=== PATIENT | female | born 1940 | race Caucasian/White ===

== ENCOUNTER 2016-10-17 12:27 | Emergency (ER) | payer MEDICARE ==
[2016-10-17 12:34] VITALS: BMI 25.4
[2016-10-17 12:37] VITALS: BP 143/77; PULSE 55; RESP 17; TEMP 97.5; O2SAT 96
--- NOTE | 2016-10-17 12:56 | ED PDOC ---
Arrival/HPI - History of Present Illness Time/Duration: > month Symptom Onset: Gradual Symptom Course: Improving Context: Home - General Chief Complaint: Abnormal Skin Integrity Time Seen by Provider: 10/17/16 12:44 - History of Present Illness Narrative History of Present Illness (Text): 10/17/16 12:52 76 year old female with no significant past medical history presents for rash on right low back and right lateral thigh. Patient states that rash began over 1 month ago. She went to see her PMD, Dr. Martin 1 month ago. She was given oral antibiotics which she finished. Her rash decrease din size but did not go away. Pt denies having any pruritis or pain at site of rash. She denies having any F/C. Denies having any changes in lotions, detergents or soaps. ( Brigitte Borjas) Past Medical History - Provider Review Nursing Documentation Reviewed: Yes - Travel History Have you recently traveled outside [place] w/in the past 3 mons?: No - Infectious Disease Hx of Infectious Diseases: None - Psychiatric Hx Psychophysiologic Disorder: Yes Hx Anxiety: Yes Hx Substance Use: No - Surgical History Hx Appendectomy: Yes Hx Section: Yes (x2) - Anesthesia Hx Anesthesia: Yes Hx Anesthesia Reactions: No Family/Social History - Physician Review Nursing Documentation Reviewed: Yes Family/Social History: Unknown Family HX Smoking Status: Never Smoked Hx Alcohol Use: No Hx Substance Use: No Allergies/Home Meds Allergies/Adverse Reactions: Allergies No Known Allergies Allergy (Verified 10/17/16 12:33) Home Medications: Home Meds Medication Instructions Recorded Confirmed ALPRAZolam [Xanax] 0.25 mg PO HS 10/17/16 10/17/16 Review of Systems - Review of Systems Constitutional: Normal. absent: Fatigue, Fevers Eyes: Normal. absent: Vision Changes, Photophobia ENT: Normal. absent: Sore Throat, Rhinorrhea, Sinus Congestion Respiratory: Normal. absent: SOB, Cough, Wheezing Cardiovascular: Normal. absent: Chest Pain, Palpitations, Edema Gastrointestinal: Normal. absent: Abdominal Pain, Constipation, Diarrhea, Nausea, Vomiting Genitourinary Female: Normal. absent: Dysuria, Frequency Musculoskeletal: Normal. absent: Arthralgias, Back Pain, Neck Pain Skin: Rash (right lateral thigh and low back ) Neurological: Normal. absent: Headache, Dizziness Endocrine: Normal. absent: Diaphoresis, Polyuria Hemo/Lymphatic: Normal. absent: Adenopathy, Easy Bleeding Physical Exam Vital Signs Reviewed: Yes Temperature: Afebrile Blood Pressure: Normal Pulse: Regular Respiratory Rate: Normal Appearance: Positive for: Well-Appearing, Non-Toxic, Comfortable Pain Distress: None Mental Status: Positive for: Alert and Oriented X 3 - Systems Exam Head: Present: Atraumatic, Normocephalic Extroacular Muscles: Present: EOMI Mouth: Present: Moist Mucous Membranes Respiratory/Chest: Present: Clear to Auscultation, Good Air Exchange. No: Respiratory Distress, Accessory Muscle Use, Wheezes, Rales, Rhonchi Cardiovascular: Present: Regular Rate and Rhythm, Normal S1, S2. No: Murmurs, Rub, Gallop, Muffled Abdomen: Present: Normal Bowel Sounds. No: Tenderness, Distention, Peritoneal Signs, Rebound, Guarding Lower Extremity: Present: Normal ROM. No: CALF TENDERNESS Skin: Present: Warm, Dry, Rashes (right lateral thigh and right low back. rash is blanching maculopapular and about 2 inches in diameter with irregular borders. flat borders. no petechia noted ) Psychiatric: Present: Alert, Oriented x 3, Normal Insight, Normal Concentration Vital Signs Temp Pulse Resp BP Pulse Ox 10/17/16 12:37 97.5 F L 55 L 17 143/77 96 Medical Decision Making ED Course and Treatment: 10/17/16 13:07 pt seen with resident. pt with rash to right back and right upper leg >1 month. due to see acquisition editor. no new notions creams detergents, mildly puritic. . pt well appearing, maculopapular rash, non petichial, well appearing. suspect contact dermititsi vs allergic rxn vs non specific rash. advise continued outpt management. (Mike Salamanca) 10/17/16 12:58 76 year old female presents for rash. Patient will be given prednisone for rash for 5 days (Brigitte Borjas) - Medication Orders Current Medication Orders: Discontinued Medications Prednisone (Prednisone Tab) 40 mg PO STAT STA Stop: 10/17/16 13:04 Last Admin: 10/17/16 13:07 Dose: 40 mg Disposition/Present on Arrival - Present on Arrival Any Indicators Present on Arrival: No History of DVT/PE: No History of Uncontrolled Diabetes: No Urinary Catheter: No History of Decub. Ulcer: No History Surgical Site Infection Following: None - Disposition Have Diagnosis and Disposition been Completed?: Yes Disposition Time: 13:00 Patient Plan: Discharge - Disposition Diagnosis: Rash Disposition: HOME/ ROUTINE Condition: GOOD Additional Instructions: Yuni Butler, thank you for letting us take care of you today. Your provider was Dr. Brigitte Borjas. You were treated for rash. The emergency medical care you received today was directed at your acute symptoms. If you were prescribed any medication, please fill it and take as directed. It may take several days for your symptoms to resolve. Return to the Emergency Department if your symptoms worsen, do not improve, or if you have any other problems. Please contact your doctor or call one of the physicians/clinics you have been referred to that are listed on the Patient Visit Information form that is included in your discharge packet. Bring any paperwork you were given at discharge with you along with any medications you are taking to your follow up visit. Our treatment cannot replace ongoing medical care by a primary care provider (PCP) outside of the emergency department. Thank you for allowing the [email or web address] team to be part of your care today. If you had an X-Ray or CT scan: A Radiologist will review the ED reading if any change in treatment is needed we will contact you. If you had a blood, urine, or wound culture: It will take several days for the results, if any change in treatment is needed we will contact you. If you had an STI test: It will take 48 hours for the results. Please call after 1 week if you have not heard back. Prescriptions: predniSONE [predniSONE Tab] 40 mg PO DAILY #5 tab Referrals: Nathan Martin MD [Primary Care Provider] - Follow up with primary Forms: [employer] (Citizen [place])
== END 2016-10-17 13:21 | disposition home or self-care (01) ==
LOC: ED 12:27
DX: R21 Rash and other nonspecific skin eruption (principal)

== ENCOUNTER 2017-08-01 17:21 | Emergency (ER) | payer MEDICARE ==
[2017-08-01 17:37] VITALS: BMI 25.7
[2017-08-01 17:40] VITALS: TEMP 97.9
--- NOTE | 2017-08-01 18:13 | ED PDOC ---
Arrival/HPI - General Chief Complaint: Lower Extremity Problem/Injury Time Seen by Provider: 08/01/17 18:06 Historian: Patient - History of Present Illness Narrative History of Present Illness (Text): 08/01/17 18:13 This 77 yo female presents to this ED c/o b/l lower leg edema x 2 months. Patient stated edema has progressively worsen. Patient denies fever, sob, cp, trauma, recent travel, dizziness, trauma, or abnormal gait. Time/Duration: Other (see hpi) Context: Home Past Medical History - Provider Review Nursing Documentation Reviewed: Yes - Infectious Disease Hx of Infectious Diseases: None - Cardiac Other/Comment: PVD - Neurological Hx Dementia: Yes - Psychiatric Hx Psychophysiologic Disorder: Yes Hx Anxiety: Yes Hx Substance Use: No - Surgical History Hx Appendectomy: Yes Hx Section: Yes (x2) - Anesthesia Hx Anesthesia: Yes Hx Anesthesia Reactions: No Family/Social History - Physician Review Nursing Documentation Reviewed: Yes Family/Social History: Other (noncontributory) Smoking Status: Never Smoked Hx Alcohol Use: No Hx Substance Use: No Allergies/Home Meds Allergies/Adverse Reactions: Allergies No Known Allergies Allergy (Verified 10/17/16 12:33) Home Medications: Home Meds Medication Instructions Recorded Confirmed Donepezil [Aricept] 1 tab PO HS 08/01/17 08/01/17 Eszopiclone [Lunesta] 1 tab PO HS PRN 08/01/17 08/01/17 Hydrochlorothiazide [Microzide] 1 tab PO DAILY 08/01/17 08/01/17 Ibuprofen [Motrin Tab] 1 tab PO PRN PRN 08/01/17 08/01/17 Pregabalin [Lyrica] 50 mg PO DAILY 08/01/17 08/01/17 clonazePAM [Klonopin] 1 tab PO PRN PRN 08/01/17 08/01/17 Review of Systems - Review of Systems Constitutional: Normal. absent: Fatigue, Weight Change, Fevers Eyes: Normal ENT: Normal Respiratory: Normal. absent: SOB, Cough, Sputum, Wheezing Cardiovascular: Normal. absent: Chest Pain, Palpitations Gastrointestinal: Normal. absent: Abdominal Pain, Nausea, Vomiting Genitourinary Female: Normal Musculoskeletal: Other ((+) b/l lower leg edema) Skin: Normal Neurological: Normal Endocrine: Normal Hemo/Lymphatic: Normal Psychiatric: Normal Physical Exam Vital Signs Temp Pulse Resp BP Pulse Ox 08/01/17 21:50 97 08/01/17 21:49 72 16 116/70 97 08/01/17 17:40 97.9 F 76 18 113/62 96 Temperature: Afebrile Blood Pressure: Normal Pulse: Regular Respiratory Rate: Normal Appearance: Positive for: Well-Appearing, Non-Toxic, Comfortable Pain Distress: None Mental Status: Positive for: Alert and Oriented X 3 - Systems Exam Head: Present: Atraumatic, Normocephalic Pupils: Present: PERRL Extroacular Muscles: Present: EOMI Conjunctiva: Present: Normal Mouth: Present: Moist Mucous Membranes Neck: Present: Normal Range of Motion Respiratory/Chest: Present: Clear to Auscultation, Good Air Exchange. No: Respiratory Distress, Accessory Muscle Use, Rhonchi Cardiovascular: Present: Regular Rate and Rhythm, Normal S1, S2. No: Murmurs Abdomen: No: Tenderness, Distention, Peritoneal Signs, Rebound, Guarding Back: Present: Normal Inspection Upper Extremity: Present: Normal Inspection, Normal ROM, NORMAL PULSES, Neurovascularly Intact, Capillary Refill < 2s. No: Cyanosis, Edema Lower Extremity: Present: Normal Inspection, Edema ((+) b/l lower leg edema, +2) , NORMAL PULSES, Normal ROM, Neurovascularly Intact, Capillary Refill < 2 s, Other (No cellulitis or streaking erythema). No: CALF TENDERNESS, Erythema, Deformity, Temperature Abnormalties Neurological: Present: GCS=15, CN II-XII Intact, Speech Normal, Motor Func Grossly Intact, Normal Sensory Function, Normal Cerebellar Funct, Gait Normal, Memory Normal Skin: Present: Warm, Dry, Normal Color. No: Rashes Psychiatric: Present: Alert, Oriented x 3, Normal Insight, Normal Concentration Medical Decision Making ED Course and Treatment: 08/01/17 21:34 Re-evaluation. Patient feels better. Discussed results and plan with patient who expresses understanding. All questions answered and there is agreement with the plan to discharge home with instructions. Patient stable for discharge. Return if symptoms persist or worsen. Patient was recommended to see Dr. Martin, and to get a referral to see Vascular surgeon. 08/01/17 21:44 Compression stocking prescription was given to patient. Re-evaluation Time: 21:35 Reassessment Condition: Re-examined, Improved - Lab Interpretations Microbiology Results: Microbiology Results 08/01/17 19:20 Blood Blood Culture - Preliminary NO GROWTH AFTER 3 DAYS 08/01/17 19:12 Blood Blood Culture - Preliminary NO GROWTH AFTER 3 DAYS Lab Results: 08/01/17 19:12 08/01/17 19:12 Lab Results 08/01/17 19:12: Sodium 138, Chloride 100, Potassium 3.7, Carbon Dioxide 32, Anion Gap 10, BUN 18, Creatinine 0.7, Est GFR ( Amer) > 60, Est GFR (Non- Af Amer) > 60, Random Glucose 118 H, Calcium 8.6, Magnesium 2.0, Total Bilirubin < 0.1 L, AST 49 H, ALT 55, Alkaline Phosphatase 57, Lactate Dehydrogenase 569, Total Creatine Kinase 57, Troponin I < 0.01, NT-Pro-B Natriuret Pep 177, Total Protein 5.9, Albumin 3.2, Globulin 2.7, Albumin/ Globulin Ratio 1.2 08/01/17 19:12: pO2 26 L, VBG pH 7.30 L, VBG pCO2 65.0 H, VBG HCO3 33.0 H, VBG Total CO2 35.1 H, VBG O2 Sat (Calc) 55.7, VBG Base Excess 4.4 H, VBG Potassium 3.5 L, Sodium 137.0, Chloride 102.0, Glucose 123 H, Lactate 0.8, FiO2 21.0, Venous Blood Potassium 3.5 L 08/01/17 19:12: PT 10.4, INR 0.91 L, APTT 31.0 08/01/17 19:12: WBC 6.7 D, RBC 4.53, Hgb 12.3, Hct 38.2, MCV 84.3, MCH 27.2, MCHC 32.2, RDW 13.5, Plt Count 230, MPV 9.6, Gran % 46.2 L, Lymph % (Auto) 38.0 H, Cecil % (Auto) 9.8 H, Eos % (Auto) 5.4 H, Baso % (Auto) 0.6, Gran # 3.07, Lymph # (Auto) 2.5, Cecil # (Auto) 0.7 H, Eos # (Auto) 0.4, Baso # (Auto) 0.04, ESR 60 H I have reviewed the lab results: Yes Interpretation: No clinic. lab abnormalty - RAD Interpretation Radiology Orders: 08/01/17 18:13 DUPLEX LOWER EXTRM VEIN BILAT [US] Stat 08/01/17 18:14 CHEST PORTABLE [RAD] Stat Disposition/Present on Arrival - Present on Arrival Any Indicators Present on Arrival: No History of DVT/PE: No History of Uncontrolled Diabetes: No Urinary Catheter: No History of Decub. Ulcer: No History Surgical Site Infection Following: None - Disposition Have Diagnosis and Disposition been Completed?: Yes Diagnosis: Lymphedema of both lower extremities Disposition: HOME/ ROUTINE Disposition Time: 21:38 Patient Plan: Discharge Condition: IMPROVED Discharge Instructions (ExitCare): Lymphedema (DC) Additional Instructions: Call Dr. Martin for follow up visit in 1-[address] Martin referred you to see vascular doctor. Use compression stocking, and remove them at bedtime.. Low salt diet. Referrals: Nathan Martin MD [Primary Care Provider] - Follow up with primary Forms: [employer] (Pashto)
[2017-08-01 19:20] LABS: BASO # 0.04 K/mm3 (0.0-2.0); BASO % 0.6 % (0.0-3.0); EOS # 0.4 (0.0-0.7); EOS % 5.4 % (1.5-5.0); GRAN # 3.07 (1.4-6.5); GRAN % 46.2 % (50.0-68.0); HEMOGLOBIN 12.3 g/dL (12.0-16.0); LYMPH # 2.5 (1.2-3.4); MEAN CELL VOLUME 84.3 fl (80.0-105.0); MEAN CORPUSCULAR HEMOGLOBIN 27.2 pg (25.0-35.0); MEAN CORPUSCULAR HGB CONC 32.2 g/dl (31.0-37.0); MEAN PLATELET VOLUME 9.6 fl (7.0-11.0); MONO # 0.7 (0.1-0.6); MONO % 9.8 % (1.0-6.0); RBC 4.53 10^6/uL (3.5-6.1); RED CELL DISTRIBUTION WIDTH 13.5 % (11.5-14.5); WHITE BLOOD COUNT 6.7 10^3/ul (4.5-11.0)
[2017-08-01 19:23] LABS: VENOUS BLOOD GAS BASE EXCESS 4.4 mmol/L (0.0-2.0); VENOUS BLOOD GAS PO2 26 mm/Hg (30-55)
[2017-08-01 19:30] LABS: INR 0.91 (0.93-1.08); PROTHROMBIN TIME 10.4 SECONDS (9.4-12.5)
[2017-08-01 19:35] LABS: ALB/GLOB RATIO 1.2 (1.1-1.8); ALBUMIN 3.2 g/dL (3.0-4.8); ALT/SGPT 55 U/L (7-56); AST/SGOT 49 U/L (14-36); BLOOD UREA NITROGEN 18 mg/dL (7-21); CALCIUM 8.6 mg/dL (8.4-10.5); GFR AFRICAN-AMERICAN > 60; GFR NON-AFRICAN AMERICAN > 60
[2017-08-01 19:44] LABS: B-TYPE NATRIURETIC PEPTIDE 177 pg/mL (0-450); TROPONIN I < 0.01 ng/mL
[2017-08-01 21:51] VITALS: BP 116/70; PULSE 72; RESP 16; O2SAT 97
--- NOTE | 2017-08-02 08:53 | RAD ---
HISTORY: edema COMPARISON: No prior. FINDINGS: LUNGS: No active pulmonary disease. PLEURA: No significant pleural effusion identified, no pneumothorax apparent. CARDIOVASCULAR: Normal. OSSEOUS STRUCTURES: No significant abnormalities. VISUALIZED UPPER ABDOMEN: Normal. OTHER FINDINGS: None. IMPRESSION: No active disease.
--- NOTE | 2017-08-03 18:40 | US ---
HISTORY: Leg pain and swelling. Evaluate for DVT PHYSICIAN(S): Sincere Guillen MD. TECHNIQUE: Duplex sonography and color-flow Doppler with graded compression were used to evaluate the deep venous systems of both lower extremities. FINDINGS: The visualized deep venous systems of both lower extremities are sonographically normal and compressible. Normal wave forms and augmentation are seen. There is no sonographic evidence for deep venous thrombosis in the visualized segments of both lower extremities. IMPRESSION: No sonographic evidence for deep venous thrombosis in the visualized segments of both lower extremities.
== END 2017-08-01 21:50 | disposition home or self-care (01) ==
LOC: ED 17:21
DX: I89.0 Lymphedema, not elsewhere classified (principal)